=== PATIENT | female | born 1980 | race Native Hawaiian/Other Pacific Islander ===

== ENCOUNTER 2023-04-16 09:08 | Outpatient (CLI) | payer OTHER ==
[~2023-04-16 09:08] MED LIST: ADIPEX PO; ADIPEX-P37.5 M1 OR; HYDR25TA60 PO
[2023-04-16 09:40] LABS: PLATELET COUNT 326 K/uL (152-353)
[2023-04-16 09:42] LABS: POTASSIUM 4.1 mmol/L (3.6-5.2)
== END 2023-04-16 19:13 | disposition home or self-care (01) ==
LOC: LABW 09:08
PROVIDERS: ATTEND Physician Assistant Medical
DX: L40.9 Psoriasis, unspecified (principal); Z51.81 Encounter for therapeutic drug level monitoring; Z79.899 Other long term (current) drug therapy
CPT/HCPCS: 36415; 80053; 85027